=== PATIENT | male | born 1970 | race Caucasian/White ===

== ENCOUNTER 2023-09-09 15:39 | Emergency (ER) | payer BC, SELFPAY ==
--- OUTSIDE RECORDS SUMMARY | 2023-09-09 15:47 | XMS_ITS | Continuity of Care Document ---
Author Name Unknown Address [facility] [place] [employer] [place] [address] Organization [facility], [facility]. Address [facility] [place] [address] Support Name Relationship Address Phone [place] [address] Allergies, Adverse Reactions, Alerts No known allergies Social History Smoking Status Unknown if ever smoked Additional Data Assigned Sex Male Travel History Date of Travel Location Problems Active Problems Medical Problem Onset Date Status Encounter for screening for other viral diseases Active Immunizations Immunization Event Date Not Given Reason Dose Number New Car Get Ready Mechanic Lot Number Vaccine Information Statement (VIS) Detail Moderna COVID-19 Vaccine (Age 18+) March 07, 2020 [id number] Moderna COVID-19 Vaccine (Age 18+) April 18, 2020 [id number] Moderna COVID-19 Vaccine (Age 18+) December 31, 2020 [id number] Insurance Providers Guarantor Thomas Lares Address [address] [address] Contact Info. Home Phone: Payer Policy Id Coverage Id Subscriber's Name Subscriber Id Effective Date Expiration Date GWEN GILLESPIE [id number] Thomas Arnaud [id number] SELF PAY Encounters Encounter Location(s) Arrival/Admit Date Discharge/Depart Date Provider(s) Departed Referred [facility] November 20, 2021 2:01pm November 20, 2021 2:02pm Marcelle Chambers APRN Plan of Treatment Future Tests Future scheduled test information is unavailable Pending Tests Test Name Ordered Date Scheduled Date Urine Opiates Screen November 20, 2021 2:05pm Urine Barbiturates Screen November 20, 2021 2 :05pm Urine Amphetamines Screen November 20, 2021 2 :05pm Urine Benzodiazepines Screen November 20 2:05pm Urine Cocaine Screen November 20, 2021 2:05pm Urine Marijuana (THC) Screen November 20 2:05pm Urine Oxycodone Screen November 20, 2021 2:05 pm Urine Methadone Screen November 20, 2021 2:05 pm Urine Buprenorphine Screen November 20, 2021 2:05pm TB Test (QFT) Incubation November 20, 2021 2: 25pm TB Test (QFT) Gold Plus November 20, 2021 2:2 5pm Future Visits Future appointment information is unavailable Referrals to Other Providers Referral information is unavailable Future Procedures Procedure Name Ordered Date Scheduled Date QuantiFERON-TB Gold Plus November 20, 2021 2: 05pm November 20, 2021 2:25pm Future Medications Future medication information is unavailable Patient Instructions Patient instructions are unavailable
[2023-09-09 15:50] VITALS: BP 133/71; PULSE 86; RESP 20; TEMP 36.9; O2SAT 97; BMI 33.3
--- NOTE | 2023-09-09 16:07 | EXP.UTC ---
Discharge Plan Disposition Patient Disposition: Home, Self-Care Condition: Good Prescriptions Prescriptions: No Action No Known Home Medications Referrals Follow up/Referrals: Provider,Referral, MD [Primary Care Provider] - See instructions Activity Restrictions/Add. Instructions Additional Instructions/Restrictions: *Monitor Temp, Over the counter Motrin or Tylenol as directed/as needed Tylenol every 4 hours and Motrin every 6 hours (as long as your family doctor has told you that you can take it) for fever or pain. and straight to ER if unable to lower temp less than 101.0 after medication given *Sleep elevated *Humidifier/Vaporizer Follow up IMMEDIATELY for new or worsening symptoms or no Noticeable improvement over the next 48-72 hours. 911 for difficulty breathing or swallowing Check with your Work for their policy on testing Postive for COVID if your COVID test is positive You were tested for today for COVID19 your test result should be back in the next 8-24hours, you may check your results on the [facility] Portal Clinical Impressions Clinical Impression: Exposure to COVID-19 virus Stand Alone Forms Stand Alone Forms: Work/School Release Instructions Patient Instructions: COVID-19 Antibody Test, DI for COVID-19 (Suspected or Confirmed ) Discharge ED Provider: Lynn Thomas [facility] HPI General Stated complaint: Rico,has been exposed to covid Mode of Arrival: Ambulatory Source of Information: Patient Limitations: No Limitations Time Seen by Provider: 09/09/23 16:07 Description of Symptoms (Recalled from Triage Doc. by RN): PATIENT C/O HEADACHE THAT STARTED YESTERDAY. PATIENT STATES HE HAS BEEN EXPOSED TO COVID THIS WEEK AT WORK HEENT Symptoms (Recalled from RN notes): Yes Resp Symptoms (Recalled from RN notes): No Skin Symptoms (Recalled from RN notes): No MS Symptoms (Recalled from RN notes): No Functional Status (Recalled from RN notes): WNL History of Present Illness Provider Complaint: Patient states that he started yesterday with headache states that yvonne at work tested positive for COVID and he wants to get tested to make sure he doesnt have it Denies any fever or chills Related Data Home Medications Medication Instructions Recorded Confirmed No Known Home Medications 09/09/23 09/09/23 Allergies Allergy/AdvReac Type Severity Reaction Status Date / Time No Known Allergies Allergy Verified 09/17/21 11:31 Worker's Comp Is this a Worker's Comp case?: No [facility] Disclaimer: The information contained in this section may have been updated after the patient was seen, as this information can be updated by other users. Medical History (Updated 09/09/23 @ 16:12 by Lynn Thomas APRN) Kidney stone History of gastroesophageal reflux (GERD) Hypertension Social History Smoking Status: Unknown if ever smoked alcohol intake: never current occupational status: employed Travel in the last 8 weeks: None ROS Obtained: Yes All systems reviewed & no additional complaints except as documented and Yes Systems reviewed as appropriate & no additional complaints except as documented Constitutional Constitutional: Reports system reviewed and no additional complaints, except as documented, Reports as per HPI, Denies body ache, Denies chills, Denies fever(s) and Reports headache(s) ENT Ears, Nose, Mouth, and Throat: Reports system reviewed and no additional complaints, except as documented, Reports as per HPI and Reports headache(s) Cardiovascular Cardiovascular: Reports system reviewed and no additional complaints, except as documented and Reports as per HPI Respiratory Respiratory: Reports system reviewed and no additional complaints, except as documented and Reports as per HPI Gastrointestinal Gastrointestingal: Reports system reviewed and no additional complaints, except as documented and as per HPI Musculoskeletal Musculoskeletal: Reports system reviewed and no additional complaints, except as documented and Reports as per HPI Neurologic Neurologic: Reports headache(s) Physical Exam General General appearance: alert and in no apparent distress Eye Eye exam: Present normal appearance, PERRL and EOMI ENT ENT exam: Present mucous membranes moist Respiratory Respiratory exam: Present normal lung sounds bilaterally; Absent respiratory distress or wheezes Cardiovascular Cardiovascular exam: Present regular rate, normal rhythm and normal heart sounds Neurological Exam Neurological exam: Present alert, oriented X3 and normal gait Medical Decision Making Tripp Inquiry Pt receiving controlled substance: No Tripp was queried for this patient: No Vital Signs: 09/09/23 15:50 Temperature 98.4 F Temperature Source Oral Pulse Rate [Left Brachial] 86 Respiratory Rate 20 Blood Pressure [Left Arm] 133/71 Blood Pressure Mean [Left Arm] 91 Blood Pressure Source [Left Arm] Automatic Cuff Blood Pressure Position [Left Arm] Sitting 02 Sat by Pulse Oximetry 97 Oxygen Delivery Method Room Air Orders (Tests/Meds): ORDERS Category Date Time Status Rapid PCR Covid and Flu A/B Stat Lab 09/09/23 16:01 Ordered
[2023-09-09 16:10] LABS: Coronavirus 19, PCR Not Detected (NotDetected); Influenza A, PCR Not Detected (NotDetected); Influenza B, PCR Not Detected (NotDetected)
[2023-09-09 16:13] VITALS: BP 133/71; PULSE 86; RESP 20; TEMP 36.9; O2SAT 97
== END 2023-09-09 16:17 | disposition home or self-care (01) ==
PROVIDERS: Emergency Provider Nurse Practitioner
DX: R51.9 Headache, unspecified (principal); Z20.822 Contact with and (suspected) exposure to COVID-19
CPT/HCPCS: 87636; 99203; 99212; G0463

== ENCOUNTER 2024-06-07 13:16 | Emergency (ER) | payer OTHER, BC, SELFPAY ==
[2024-06-07 13:20] VITALS: BP 144/101; PULSE 91; RESP 14; TEMP 36.8; O2SAT 98; BMI 34.7
--- NOTE | 2024-06-07 13:27 | XR_ITS ---
FINAL REPORT CLINICAL HISTORY: injury, pain dorsum L hand and L elbow FINDINGS: LEFT HAND Three views demonstrate no acute fracture or dislocation. The visualized joint spaces are normally aligned. The soft tissues are unremarkable. IMPRESSION: No acute process. Reviewed, Interpreted and Dictated by Ashlie Moulton MD Transcribed by Kasey Maravilla Authenticated and [facility]
--- NOTE | 2024-06-07 13:27 | XR_ITS ---
FINAL REPORT CLINICAL HISTORY: injury, pain dorsum L hand and L elbow FINDINGS: 2 views of the left forearm were obtained. There is no acute fracture or dislocation. The joints are intact. There are no soft tissue abnormalities. IMPRESSION: No acute process. Reviewed, Interpreted and Dictated by Ashlie Moulton MD Transcribed by Kasey Maravilla Authenticated and [facility]
--- NOTE | 2024-06-07 13:27 | XR_ITS ---
FINAL REPORT CLINICAL HISTORY: injury, pain dorsum L hand and L elbow FINDINGS: LEFT HUMERUS Two views show no evidence of an acute, displaced fracture or dislocation of the visualized bony architecture. The joint spaces appear normal. IMPRESSION: Unremarkable exam. Reviewed, Interpreted and Dictated by Ashlie Moulton MD Transcribed by Kasey Maravilla Authenticated and . [facility]
--- NOTE | 2024-06-07 13:27 | XR_ITS ---
FINAL REPORT CLINICAL HISTORY: injury, pain dorsum L hand and L elbow FINDINGS: LEFT ELBOW Three views were obtained. There is no acute fracture or dislocation. Joint spaces are maintained. No acute soft tissue abnormality is seen. IMPRESSION: No acute bony abnormality. Reviewed, Interpreted and Dictated by Ashlie Moulton MD Transcribed by Kasey Maravilla Authenticated and [facility]
--- NOTE | 2024-06-07 13:28 | HMH.EDGENADL ---
Discharge Plan Disposition Patient Disposition: Home, Self-Care Condition: Good Prescriptions Prescriptions: No Action No Known Home Medications Referrals Follow up/Referrals: Bhupinder Penny DO [Staff Physician] - See instructions Provider,Referral, [Primary Care Provider] - See instructions Activity Restrictions/Add. Instructions Additional Instructions/Restrictions: You were evaluated in the emergency department today. At this time, x-rays do not show any broken bones. If you continue to have significant pain, please follow-up closely with orthopedics. Rest, ice, and elevate your arm to reduce pain and swelling. Use your sling as needed for comfort. Return to the emergency department for new or worsening symptoms. Clinical Impressions Clinical Impression: Left elbow pain, Contusion of left hand Stand Alone Forms Stand Alone Forms: Work/School Release Instructions Patient Instructions: DI for Elbow Sprain, DI for Elbow Pain, DI for Hand Injury Print Language Print Language: Bangladeshi Discharge ED Provider: Fanny Alexandre General Adult HPI General Chief complaint: Extremity Injury, Upper Stated complaint: AO L arm pain swelling 06/07 124 Time Seen by Provider: 06/07/24 13:23 History of Present Illness HPI narrative: This patient is a 54-year-old [id number] male presenting to the emergency department for evaluation with concern for left elbow and left hand injury. Patient reports he was at work using a wrench to change of fuel filter when the wrench slipped, he ended up hitting his left hand, and that he came down on his left elbow. He complains of significant pain in his left elbow at this time. He notes his hand is a little bit painful, but he is able to move his fingers fine. No numbness, tingling, or other concerns. No other injuries noted. He does not take blood thinners or aspirin. Related Data Home Medications ?Medication ?Instructions ?Recorded ?Confirmed No Known Home Medications 09/09/23 09/09/23 Allergies Allergy/AdvReac Type Severity Reaction Status Date / Time No Known Allergies Allergy Verified 09/17/21 11:31 [facility] Disclaimer: The information contained in this section may have been updated after the patient was seen, as this information can be updated by other users. Medical History Kidney stone History of gastroesophageal reflux (GERD) Hypertension Social History Smoking Status: Never smoker alcohol intake: never current occupational status: employed Travel in the last 8 weeks: None Other Medical History Have you received the Flu Vaccine for this season: No Have you received the Pneumonia Vaccine: No ROS Obtained: Yes All systems reviewed & no additional complaints except as documented Physical Exam General General appearance: alert and in no apparent distress Head Head exam: atraumatic and normocephalic Eye Eye exam: Present normal appearance, PERRL and EOMI ENT ENT exam: Present normal exam, normal oropharynx, mucous membranes moist and normal external ear exam Neck Neck exam: Present normal inspection, full ROM and trachea midline; Absent tenderness Chest Chest inspection: Present normal inspection and symmetric chest wall rise; Absent tenderness Respiratory Respiratory exam: Present normal lung sounds bilaterally; Absent respiratory distress, wheezes, stridor or accessory muscle use Cardiovascular Cardiovascular exam: Present regular rate and normal rhythm Abdominal Exam Abdominal exam: Present soft; Absent distention, tenderness or guarding Extremities Exam Extremities exam: Present tenderness, normal capillary refill and other (Tender to palpation of the left elbow joint. Limited range of motion of left elbow secondary to pain. Tenderness palpation and bruising of the dorsum of the left hand at the knuckles. Neurovascular intact distally with intact range of motion of all the fingers.); Absent full ROM or edema Back Exam Back exam: Present normal inspection and full ROM; Absent tenderness Neurological Exam Neurological exam: Present alert, oriented X3, CN II-XII intact and normal gait; Absent motor sensory deficit Psychiatric Psychiatric exam: Present normal affect and normal mood Skin Skin exam: Present warm and dry Medical Decision Making Medical Records Medical records reviewed: Yes I reviewed the patient's medical records. Screening: Per USPSTF and CDC recommendations, given the prevalence of disease in our region, it is our hospital?s policy to screen for HIV and viral Hepatitis for all patients aged 18 and over and those with ongoing risk factors. Tripp Inquiry Pt receiving controlled substance: No Vital Signs: 06/07/24 13:20 06/07/24 14:44 Temperature 98.2 F 98.2 F Temperature Source Oral Pulse Rate 80 Pulse Rate [Left Radial] 91 H Respiratory Rate 14 20 Blood Pressure 154/78 H Blood Pressure [Right Arm] 144/101 H Blood Pressure Mean [Right Arm] 115 Blood Pressure Source [Right Arm] Automatic Cuff Blood Pressure Position [Right Arm] Sitting 02 Sat by Pulse Oximetry 98 Oxygen Delivery Method Room Air Room Air Lab Data Lab results reviewed: Yes I reviewed the patient's lab results. Orders (Tests/Meds): ED MEDICATIONS Discontinued Medications Generic Name Dose Route Start Last Admin Trade Name Aleshia PRN Reason Stop Dose Admin Acetaminophen 1,000 mg 06/07/24 13:27 06/07/24 13:36 Acetaminophen 500mg Tab PO 06/07/24 13:28 1,000 mg ONCE ONE Administration Ibuprofen 800 mg 06/07/24 13:27 06/07/24 13:36 Ibuprofen 400 Mg Tablet PO 06/07/24 13:28 800 mg ONCE ONE Administration ORDERS Category Date Time Status Elbow XR left mininum 3 views [XR elbow LT min 3V] Stat Exams 06/07/24 13:27 Completed Forearm XR left 2 views [XR forearm LT 2V] Stat Exams 06/07/24 13:27 Completed Hand XR left minimum 3 views [XR hand LT min 3V] Stat Exams 06/07/24 13:27 Completed Humerus XR left [XR humerus LT] Stat Exams 06/07/24 13:27 Completed Medical Decision Narrative: In summary, this patient is a 54-year-old male presenting to the Emergency Department for evaluation of left elbow and left hand injury. Differential diagnoses considered include but are not limited to fracture, contusion, strain/sprain, neurovascular injury. Ruling out the most morbid conditions drove assessment. On exam, the patient has tenderness of the left elbow and the dorsum of the left hand but is neurovascularly intact with intact range of motion of all of his fingers. No open wounds. Workup included strays of the left hand, forearm, elbow, humerus. Patient was given oral Tylenol and ibuprofen for pain. I independently interpreted x-ray prior to the radiologist read and noted no acute fracture. Please see their read for final interpretation. At this time, I feel patient is appropriate for discharge home with close follow-up with orthopedics for further evaluation and management. He was given sling to have as needed for comfort. Instruction for supportive management and strict return precautions were given. He was discharged after all questions were answered Critical Care Critical Care Time Critical Care Time: No
[2024-06-07] MEDS: IBUPROFEN 400 MG TABLET 800 MG PO (13:36)
[2024-06-07] MEDS: ACETAMINOPHEN 500MG TAB 1000 MG PO (13:36)
[2024-06-07 14:44] VITALS: BP 154/78; PULSE 80; RESP 20; TEMP 36.8; O2SAT 98
== END 2024-06-07 14:45 | disposition home or self-care (01) ==
PROVIDERS: Emergency Provider Emergency Medicine
DX: S60.222A Contusion of left hand, initial encounter (principal); M25.522 Pain in left elbow; M79.642 Pain in left hand; X58.XXXA Exposure to other specified factors, initial encounter; Y93.89 Activity, other specified; Y92.9 Unspecified place or not applicable; Y99.9 Unspecified external cause status
CPT/HCPCS: 73060; 73080; 73090; 73130; 99283

== ENCOUNTER 2024-07-05 08:33 | Outpatient (CLI) | payer BC, SELFPAY ==
--- NOTE | 2024-07-05 09:00 | CA_ITS ---
FINAL REPORT TECHNIQUE: Ultrasound images of the kidneys were obtained. Duplex Doppler of the renal arteries, RAR and RI also obtained. Spectral analysis was performed. CLINICAL HISTORY: HTN, 170/104 HX-Kidney stones COMPARISON: None FINDINGS: Limited images of the liver parenchyma demonstrate normal echogenicity, with mild bilateral renal cortical thinning. The right kidney measures 13.6 cm in length. It is normal echogenicity. There is no hydronephrosis. RI is 0.53-0.61. The renal artery/aortic ratio: 1.5. The left kidney measures 11.2 cm in length. It is normal echogenicity. There is no hydronephrosis. RI is 0.57-0.63. The renal artery/aortic ratio: 1.6. IMPRESSION: Normal renal ultrasound. Normal RI bilaterally. Reviewed, Interpreted and Dictated by Olivia Velásquez MD Transcribed by Kelsey Tran Authenticated and [facility]
--- NOTE | 2024-07-05 10:00 | US_ITS ---
FINAL REPORT TECHNIQUE: Ultrasound images of the kidneys and bladder were obtained. CLINICAL HISTORY: hypertension COMPARISON: None FINDINGS: The right kidney measures 14.0 cm in length. No hydronephrosis, mass, or stone. Mild right renal cortical thinning. The left kidney measures 12.5 cm in length. No hydronephrosis, mass, or stone. Mild left renal cortical thinning. The urinary bladder is unremarkable. IMPRESSION: Mild renal cortical thinning bilaterally. Otherwise, unremarkable exam. Reviewed, Interpreted and Dictated by Olivia Velásquez MD Transcribed by Hanna Powell Authenticated and [facility]
== END 2024-07-05 23:59 | disposition home or self-care (01) ==
LOC: RT 08:33
PROVIDERS: PCP Nurse Practitioner Family; Visit Provider Nurse Practitioner Family
DX: I10 Essential (primary) hypertension (principal)
CPT/HCPCS: 76770; 93976

== ENCOUNTER 2024-07-12 06:43 | Outpatient (CLI) | payer OTHER, SELFPAY ==
--- NOTE | 2024-07-12 07:00 | MR_ITS ---
FINAL REPORT CLINICAL HISTORY: Left elbow pain, limited ROM unable to straighten, fall and hit elbow COMPARISON: None FINDINGS: Multiplanar MR imaging of the left elbow was performed without contrast. The bony structures are intact without evidence of fracture, bone bruise or marrow edema. There is no evidence of osteochondral lesion. The ligaments appear intact. There is abnormal signal in the common extensor tendon. This abnormal signal extends to the insertion of the tendon and is consistent with a partial intrasubstance tear. The common flexor tendon is intact. The biceps tendon is intact. The distal triceps tendon is intact. The brachialis tendon is intact. The musculature has an unremarkable appearance. No soft tissue mass or cyst is identified. No focal abnormality is identified of the ulnar nerve. IMPRESSION: Partial intrasubstance tear common extensor tendon as described. Reviewed, Interpreted and Dictated by Aden Moser MD Transcribed by Kasey Cormier Authenticated and [facility]
== END 2024-07-12 23:59 | disposition home or self-care (01) ==
LOC: RAD 06:46
PROVIDERS: PCP Nurse Practitioner Family; Visit Provider Physician Assistant
DX: M66.222 Spontaneous rupture of extensor tendons, left upper arm (principal); W18.30XA Fall on same level, unspecified, initial encounter; Z04.2 Encounter for examination and observation following work accident
CPT/HCPCS: 73221

== ENCOUNTER 2024-07-19 10:53 | Outpatient (CLI) | payer BC, SELFPAY ==
[2024-07-19 11:47] LABS: Basophils # 0.1 K/mm3 (0-0.2); Basophils % 0.7 % (0.1-2.0); Eosinophils # 0.2 Kmm3 (0.0-0.4); Eosinophils % 2.8 % (0.1-12.0); Hematocrit 44.3 % (42.0-52.0); Hemoglobin 16.2 g/dL (14.1-18.0); Immature Granulocytes # 0.03 10^3uL; Immature Granulocytes % 0.4 %; Lymphocytes % 29.2 % (10-50); Mean Corpuscular HGB Conc 36.6 g/dL (31.8-35.4); Mean Corpuscular Volume 84.9 fl (80-94); Mean Platelet Volume 10.3 fl (7.4-10.4); Monocytes # 0.8 K/mm3 (0.1-1.0); Monocytes % 11.2 % (1.7-9.3); Neutrophils # 3.8 K/mm3 (1.8-7.8); Neutrophils % 55.7 % (37.0-80.0); Nucleated Red Blood Cells # 0 10^3/uL; Nucleated Red Blood Cells % 0 %; Platelet Count 203 K/mm3 (142-424); Red Blood Count 5.22 M/mm3 (4.60-6.20); Red Cell Distribution Width 12.3 % (11.5-17.5); Red Cell Distribution Width-SD 37.2 fL; White Blood Count 6.9 K/mm3 (4.8-10.8)
[2024-07-19 11:59] LABS: Hemoglobin A1C 5.4 % (4.0-6.0)
[2024-07-19 12:20] LABS: Alanine Aminotransferase 32 U/L (12-78); Albumin Level 4.4 g/dl (3.5-5.0); Alkaline Phosphatase 84 U/L (38-126); Anion Gap 9.3 mEq/L (5-15); Aspartate Amino Transferase 27 U/L (17-59); Bilirubin,Indirect 0.8 mg/dL (0.0-0.9); Bilirubin,Total 0.8 mg/dl (0.2-1.3); Bilirubin,Unconjugated 0.8 mg/dL (0.0-1.1); Blood Urea Nitrogen 13 mg/dl (9-20); Calcium 9.1 mg/dl (8.4-10.2); Carbon Dioxide 30 mmol/L (22.0-30.0); Chloride 104 mmol/L (98-107); Chol/HDL Ratio 3.5 (1-3.5); Cholesterol 134 mg/dl (140-200); Estimated Glomerular Filt Rate 78 ml/min (>60); GFR (African American) 95 ML/MIN (>60); Glucose 94 mg/dl (74-100); HDL Cholesterol 38 mg/dl (40-60); Magnesium 1.9 mg/dl (1.6-2.3); Potassium 4.3 mmoL/L (3.5-5.1); Sodium 139 mmol/L (136-145); Total Protein,Serum 6.5 g/dl (6.3-8.2); Triglycerides 114 mg/dl (30-150); VLDL Cholesterol 23 mg/dL (0-40)
[2024-07-19 12:31] LABS: Direct LDL Cholesterol 80.32 mg/dL (100-129)
[2024-07-19 12:51] LABS: Thyroid Stimulating Hormone 1.35 uIU/mL (0.465-4.68)
== END 2024-07-19 23:59 | disposition home or self-care (01) ==
LOC: LAB 10:54
PROVIDERS: PCP Nurse Practitioner Family; Visit Provider Nurse Practitioner Family
DX: R40.0 Somnolence (principal); I10 Essential (primary) hypertension; Z12.5 Encounter for screening for malignant neoplasm of prostate
CPT/HCPCS: 36415; 80048; 80061; 80076; 83036; 83735; 84439; 84443; 85025; G0103

== ENCOUNTER 2024-07-26 12:27 | Outpatient (RCR) | payer OTHER, BC, SELFPAY | END 2024-07-28 23:59 | disposition home or self-care (01) | LOC: OT 12:27 | PROVIDERS: Visit Provider Orthopaedic Surgery | DX: S56.512A Strain of other extensor muscle, fascia and tendon at forearm level, left arm, initial encounter (principal) | CPT/HCPCS: 97166; 97530 ==

== ENCOUNTER 2024-08-28 15:00 | Outpatient (RCR) | payer OTHER, BC, SELFPAY ==
--- NOTE | 2024-08-22 10:51 | HMH.RHREAS ---
Rehab Reassessment Rehab OP Re-assessment Start: 08/01/24 11:04 Freq: Status: Active Protocol: Document 08/22/24 10:40 SUSANA (Rec: 08/22/24 10:50 SUSANA [id number]) E-signed By Fara Villanueva OT QuickDASH Activities Please rate your ability to do the following activities in the last week by selecting the number below the appropriate response. 1. Open a tight or Unable new jar. 2. Do heavy Severe difficulty print machine operator (e. g., wash zhou, floors). 3. Carry a shopping Unable bag or briefcase. 4. Wash your back. Moderate difficulty 5. Use a knife to Severe difficulty cut food. 6. Recreational Unable activities in which you take some force or impact through your arm, shoulder, or hand (e.g., golf, hammering, tennis, etc.). 7. During the past Extremely week, to what extent has your arm, shoulder or hand problem interfered with your normal social activities with family, friends , neighbors or groups? 8. During the past Very limited week, were you limited in your work or other regular daily activites as a result of your arm, shoulder or hand problem? 9. Arm, shoulder or Extreme hand pain. 10. Tingling (pins Extreme and needles) in your arm, shoulder or hand. 11. During the past Severe difficulty week, how much difficulty have you had sleeping because of the pain in your arm, shoulder or hand? Quick DASH 49 Rehab Re-assessment Subjective Subjective I still can't ride my camilla. Objective Objective Notes Pt is a 54 yr old male being seen for skilled OT services and interventions to address L UE deficits limiting occupational performance. Pt continues to engage in AROM and AAROM exercises each session in L UE . Pt also receives PROM manual stretching at left UE in all planes following protocol. Modalities are provided in order to decrease pain/inflammation. Most sessions have been to address L elbow in pain and swelling and L hand wrist and manager orange strength and dexterity. Pt plans to take home pulleys today to address AAROM at home for HEP. Pt also given theraputty for increasing manager orange strength for HEP. Pt educated on use and able to teachback methods taught. Assessment Progress Assessment Progressing as Expected Assessment Notes Pt continues to address L UE deficits with OT services and interventions addressing strength, ROM, and endurance. Pt remains very consistent about attending therapy sessions. Pt complains of continued pain with specific motions, especially Abd. Pt's pain is still reaching to a 6/10 at worst. Therapist continues to advance patient following protocol. Current AROM L shoulder Flex: 140 Abd: 125 ER: 90 IR: 45 pain at worst: 6/10 Patient goals met SHORT TERM GOALS: 6. Pt will demonstrate independence w/ left UE HEP targeting ROM and use of compensatory strategies, in order to increase fxl ind. Goals Not Met see below Revised Goals SHORT TERM GOALS: 1. Pt will report decreased pain no more than 5/10. 2. Pt will improve left UE pronation to 40 in order to engage in ADL/IADL with greater independence. 3. Pt will improve left UE supination to 25 in order to engage in ADL/IADL with greater independence. 4. Pt will improve left elbow extension to 50 in order to engage in ADL/IADL with greater independence. 5. Pt will improve left elbow flexion to 120 in order to engage in ADL/IADL with greater independence. 7. Pt will demonstrate improved QuickDash Score to no greater than 32. MANAGER PARKING GOALS: 1. Pt will report decreased pain no more than 3/10. 2. Pt will improve left UE pronation to 70 in order to engage in ADL/IADL with greater independence. 3. Pt will improve left UE supination to 60 in order to engage in ADL/IADL with greater independence. 4. Pt will improve left elbow extension to 20 in order to engage in ADL/IADL with greater independence. 5. Pt will improve left elbow flexion to 130 in order to engage in ADL/IADL with greater independence. 6. Pt will demonstrate independence w/ left UE HEP targeting ROM and strength, including Yfn exercises, in order to increase fxl ind. 7. Pt will improve QuickDash score to no greater than 16. Time and Billing Re-Eval Time 8 Re-Eval Billing 1 Units Charge for OT Yes reassessment? PHYSICIAN CERTIFICATION: I certify the specified therapy services for Thomas Lares are required, authorized, and reviewed every 30 days.
== END 2024-08-28 23:59 | disposition home or self-care (01) ==
LOC: OT 15:00
PROVIDERS: Visit Provider Orthopaedic Surgery
DX: S56.512A Strain of other extensor muscle, fascia and tendon at forearm level, left arm, initial encounter (principal); X58.XXXA Exposure to other specified factors, initial encounter
CPT/HCPCS: 97010; 97014; 97035; 97110; 97140; 97168; G0283

== ENCOUNTER 2024-09-05 08:52 | Outpatient (CLI) | payer OTHER, SELFPAY ==
--- NOTE | 2024-09-05 09:30 | MR_ITS ---
FINAL REPORT CLINICAL HISTORY: left forearm pain. swelling and numbness in finger. injury June 07, fell on a bar. COMPARISON: None FINDINGS: Multiplanar MR imaging of the left forearm was performed without contrast. There is no evidence of fracture or bone marrow edema. No bony mass is identified. Musculature is intact without evidence of edema. There is a minimal elbow joint effusion. There is mild subcutaneous soft tissue edema along the posterior ulna. This is best seen on image #9 of series 13, and images #14 through 17 of series 25. There is mild abnormal signal in the common extensor tendon, consistent with a sprain or small partial tear. IMPRESSION: Mild subcutaneous soft tissue edema along the posterior ulna. Mild abnormal signal in the common extensor tendon, consistent with a small sprain or partial tear. Reviewed, Interpreted and Dictated by Aden Moser MD Transcribed by Kelsey Tran Authenticated and [facility]
== END 2024-09-05 23:59 | disposition home or self-care (01) ==
PROVIDERS: PCP Nurse Practitioner Family; Visit Provider Physician Assistant
DX: M79.89 Other specified soft tissue disorders (principal); R93.6 Abnormal findings on diagnostic imaging of limbs; S59.912A Unspecified injury of left forearm, initial encounter
CPT/HCPCS: 73218

== ENCOUNTER 2024-09-26 12:41 | Outpatient (RCR) | payer OTHER, BC, SELFPAY | END 2024-09-26 23:59 | disposition home or self-care (01) | LOC: OT 12:41 | PROVIDERS: Visit Provider Orthopaedic Surgery | DX: S56.512A Strain of other extensor muscle, fascia and tendon at forearm level, left arm, initial encounter (principal) | CPT/HCPCS: 97032; 97035; 97140; 97168; 97530 ==

== ENCOUNTER 2024-10-26 08:00 | Outpatient (RCR) | payer OTHER, BC, SELFPAY | END 2024-10-26 23:59 | disposition home or self-care (01) | LOC: OT 08:00 | PROVIDERS: Visit Provider Orthopaedic Surgery | DX: S56.512A Strain of other extensor muscle, fascia and tendon at forearm level, left arm, initial encounter (principal) | CPT/HCPCS: 97014; 97032; 97035; 97110; 97140; 97168; G0283 ==

== ENCOUNTER 2024-11-07 14:00 | Outpatient (RCR) | payer OTHER, BC, SELFPAY | END 2024-11-07 23:59 | disposition home or self-care (01) | LOC: OT 14:00 | PROVIDERS: PCP Nurse Practitioner Family; Visit Provider Orthopaedic Surgery | DX: S56.512A Strain of other extensor muscle, fascia and tendon at forearm level, left arm, initial encounter (principal) | CPT/HCPCS: 97110; 97140; 97530 ==